=== PATIENT | male | born 1985 | race Two or more races ===

== ENCOUNTER 2022-06-14 10:23 | Emergency (ER) | payer SELFPAY ==
[2022-06-14 10:28] VITALS: BP 137/61; PULSE 67; RESP 18; TEMP 98; BMI 23.3
[2022-06-14] MEDS ORDERED: ACETAMINOPHEN 500 MG TABLET (FP) PO ONE (13:17)
[2022-06-14] MEDS ORDERED: METOCLOPRAMIDE HCL 10 MG TABLET (FP) PO ONE ×2 (13:17→13:28)
[2022-06-14] MEDS ORDERED: ACETAMINOPHEN 500 MG TABLET (FP) ONE (13:29)
[2022-06-14] MEDS ORDERED: KETOROLAC TROMETHAMINE 30 MG/1 ML VIAL IM ONE (14:30)
[2022-06-14] MEDS ORDERED: KETOROLAC TROMETHAMINE 30 MG/1 ML VIAL ONE (14:39)
== END 2022-06-14 15:19 | disposition home or self-care (01) ==
LOC: JER 10:23
PROC: 3E0233Z Introduction of Anti-inflammatory into Muscle, Percutaneous Approach (ICD-10-PCS; principal; 2022-06-14)
DX: R51.9 Headache, unspecified (principal)
CPT/HCPCS: 0241U-QW; 99284-25